=== PATIENT | female | born 1980 | race Caucasian/White ===

== ENCOUNTER 2019-10-14 12:26 | Emergency (ER) | payer MEDICAID, OTHER ==
[~2019-10-14] VITALS: Ht 170.2 cm; Wt 88.9 kg
[~2019-10-14 12:26] MED LIST: NO HOME MEDS; ONDA8TAB6 PO; ONDA8TAB9 PO
--- NOTE | 2019-10-14 12:42 | NUR ---
Pt last took Benadryl 25 mg ~ 1030 today.
[2019-10-14] MEDS ORDERED: dexamethasone sod phosphate 10mg/ml inj IV STA (12:56)
[2019-10-14] MEDS ORDERED: diphenhydrAMINE 50 mg/ml inj IV ONE (13:00)
[2019-10-14 14:14] VITALS: BP 133/93
== END 2019-10-14 14:10 | disposition home or self-care (01) ==
LOC: ER 12:26
DX: T78.49XA Other allergy, initial encounter (principal); Z90.710 Acquired absence of both cervix and uterus; Z79.899 Other long term (current) drug therapy; Z88.0 Allergy status to penicillin; Z88.8 Allergy status to other drugs, medicaments and biological substances; X58.XXXA Exposure to other specified factors, initial encounter
CPT/HCPCS: 96374; 96375; 99284; J1100; J1200

== ENCOUNTER 2019-10-27 10:46 | Emergency (ER) | payer MEDICAID, OTHER ==
[~2019-10-27] VITALS: Ht 170.2 cm; Wt 88.6 kg
[2019-10-27] MEDS ORDERED: triamcinolone acetonide 40mg/ml inj IM ONE (12:35)
[2019-10-27] MEDS ORDERED: METH4TAB81 PO (12:56)
[2019-10-27 13:42] VITALS: BP 118/84
== END 2019-10-27 13:42 | disposition home or self-care (01) ==
LOC: ER 10:46
DX: L30.8 Other specified dermatitis (principal); G43.909 Migraine, unspecified, not intractable, without status migrainosus; Z90.710 Acquired absence of both cervix and uterus; Z90.89 Acquired absence of other organs; Z72.89 Other problems related to lifestyle; Z88.0 Allergy status to penicillin; Z79.899 Other long term (current) drug therapy
CPT/HCPCS: 96372; 99283; J3301